=== PATIENT | female | born 1960 | race Hispanic/Latino ===

== ENCOUNTER 2016-10-27 09:15 | Inpatient (IN) | payer OTHER ==
[2016-10-27 11:08] LABS: Basophils % (Auto) 0.8 % (0.0-1.8); Eosinophils % (Auto) 2.1 % (0.0-4.3); Hemoglobin 13.7 gm/dl (10.1-14.3); Mean Corpuscular HGB Conc 33 % (30-34); Mean Corpuscular Hemoglobin 31 pg (28-32); Mean Corpuscular Volume 92 fl (79-97); Platelet Count 262 K/mm3 (140-440); Red Blood Count 4.48 M/mm3 (3.65-5.03); Red Cell Distribution Width 13.4 % (13.2-15.2); White Blood Count 8.9 K/mm3 (4.5-11.0)
[2016-10-27 11:30] LABS: Anion Gap 17 mmol/L; BUN/Creatinine Ratio 23.75; Blood Urea Nitrogen 19 mg/dL (7-17); Calcium 9.1 mg/dL (8.4-10.2); Carbon Dioxide 24 mmol/L (22-30); Chloride 101.5 mmol/L (98-107); Glucose 149 mg/dL (65-100); Potassium 3.8 mmol/L (3.6-5.0); Sodium 139 mmol/L (137-145)
[2016-10-27 11:40] LABS: Albumin 3.8 g/dL (3.9-5); Albumin/Globulin Ratio 1.2 %; Bilirubin,Direct 0.3 mg/dL (0-0.2); Bilirubin,Indirect 0.4 mg/dL; Bilirubin,Total 0.7 mg/dL (0.1-1.2)
--- NOTE | 2016-10-27 11:46 | Emergency Department Report ---
ED Altered Mental Status HPI - General Chief Complaint: Altered Mental Status Stated Complaint: AMS Time Seen by Provider: 10/27/16 10:39 Source: patient, EMS Mode of arrival: Stretcher Limitations: No Limitations - History of Present Illness Initial Comments: The history that was available to me is that the patient "woke up in a hotel room and didn't know how she got there.". According to triage the patient remembered that she went to a club and stated that she didn't use drugs or alcohol. However she told me that she thought perhaps she might have drank too much alcohol. She is not very forthcoming concerning her drug use or what actually happened last night. However, she was found wandering into other people's rooms at this hotel. Patient denies any previous episode or psychiatric condition. She is not very willing to provide further historical information. She just states "I was disoriented". She tends to lie on her side with her head away turning away on repeated exams.. Complaint: altered mental status, confusion -: unknown Severity: moderate, severe Context: alcohol abuse, drug abuse (possibly) Associated Symptoms: denies other symptoms - Related Data Previous Rx's Medication Instructions Recorded Last Taken Type Benzonatate [Tessalon Perles] 100 mg PO Q8HR PRN #20 capsule 05/14/15 Unknown Rx guaiFENesin/CODEINE [Robitussin AC] 5 ml PO Q6H PRN #100 ml 05/14/15 Unknown Rx predniSONE [Deltasone] 20 mg PO BID 5 Days 05/14/15 Unknown Rx ALBUTEROL Inhaler [ProAir HFA 2 puff IH QID PRN #1 inhalation 10/31/15 Unknown Rx Inhaler] Levofloxacin [Levaquin TAB] 500 mg PO QDAY #5 tablet 10/31/15 Unknown Rx predniSONE [Deltasone] 50 mg PO QDAY #5 tab 10/31/15 Unknown Rx Allergies Allergy/AdvReac Type Severity Reaction Status Date / Time No Known Allergies Allergy Unverified 05/14/15 10:24 ED Review of Systems ROS: Stated complaint: AMS Other details as noted in HPI Comment: Unobtainable due to pts medical conditions (Limited secondary to patient cooperation and altered mental status) ED Past Medical Hx - Past Medical History Previous Medical History?: Yes Hx Hypertension: Yes Hx Heart Attack/AMI: Yes Hx Diabetes: Yes Hx Psychiatric Treatment: Yes (depression) Hx COPD: Yes Additional medical history: Hypothyroid. Hepatits C. Neuropathy - Surgical History Past Surgical History?: Yes Hx Coronary Stent: Yes Additional Surgical History: Cardiac cath - Social History Smoking Status: Current Every Day Smoker Substance Use Type: Alcohol, Methamphetamines - Medications Home Medications: Home Medications Medication Instructions Recorded Confirmed Last Taken Type Benzonatate [Tessalon Perles] 100 mg PO Q8HR PRN #20 capsule 05/14/15 Unknown Rx guaiFENesin/CODEINE [Robitussin AC] 5 ml PO Q6H PRN #100 ml 05/14/15 Unknown Rx predniSONE [Deltasone] 20 mg PO BID 5 Days 05/14/15 Unknown Rx ALBUTEROL Inhaler [ProAir HFA 2 puff IH QID PRN #1 inhalation 10/31/15 Unknown Rx Inhaler] Levofloxacin [Levaquin TAB] 500 mg PO QDAY #5 tablet 10/31/15 Unknown Rx predniSONE [Deltasone] 50 mg PO QDAY #5 tab 10/31/15 Unknown Rx ED Physical Exam - General Limitations: Altered Mental Status General appearance: in no apparent distress, lethargic - Head Head exam: Present: atraumatic, normocephalic - Eye Eye exam: Present: normal appearance, PERRL, EOMI. Absent: scleral icterus - ENT ENT exam: Present: normal exam, mucous membranes moist - Neck Neck exam: Present: normal inspection. Absent: tenderness, meningismus - Respiratory Respiratory exam: Present: normal lung sounds bilaterally. Absent: respiratory distress - Cardiovascular Cardiovascular Exam: Present: regular rate, normal rhythm. Absent: systolic murmur, diastolic murmur, rubs, gallop - GI/Abdominal GI/Abdominal exam: Present: soft, normal bowel sounds. Absent: distended, tenderness, guarding, rebound, rigid - Extremities Exam Extremities exam: Present: normal inspection - Back Exam Back exam: Present: normal inspection - Neurological Exam Neurological exam: Present: alert, altered, CN II-XII intact (as testable poor patient cooperation). Absent: motor sensory deficit - Psychiatric Psychiatric exam: Present: normal mood, flat affect - Skin Skin exam: Present: warm, dry, intact, normal color. Absent: rash - Assessment Assessment Interval: Baseline - Level of Consciousness 1a. Level of Consciousness: alert - LOC Questions 1b. LOC Questions: answers correctly - LOC Command 1c. LOC Commands: performs tasks correctly - Best Gaze 2. Best Gaze: normal - Visual 3. Visual: no visual loss - Facial Palsy 4. Facial Palsy: normal symmetrical movement - Motor Arm 5b. Motor Arm Right: no drift 5a. Motor Arm Left: no drift - Motor Leg 6a. Motor Leg Left: no drift 6b. Motor Leg Right: no drift - Limb Ataxia 7. Limb Ataxia: absent - Sensory 8. Sensory: normal - Best Language 9. Best Language: no aphasia - Dysarthria 10. Dysarthria: normal - Extinction and Inattention 11. Extinction/Inattention: no abnormality - Scoring Total Score: 0 Stroke Severity: No Stroke Symptoms ED Course Vital Signs 10/27/16 10/27/16 10/27/16 10:15 10:17 10:21 Temperature Pulse Rate 74 85 86 Respiratory 17 18 20 Rate Blood Pressure 154/73 154/73 O2 Sat by Pulse 95 94 96 Oximetry 10/27/16 10/27/16 10/27/16 10:23 10:24 10:30 Temperature 97.9 F Pulse Rate 84 Respiratory 16 13 Rate Blood Pressure 148/79 O2 Sat by Pulse 90 97 Oximetry 10/27/16 10/27/16 10/27/16 10:45 11:01 11:15 Temperature Pulse Rate 89 68 83 Respiratory 15 15 17 Rate Blood Pressure 141/84 154/68 137/70 O2 Sat by Pulse 93 95 91 Oximetry 10/27/16 10/27/16 10/27/16 11:31 11:45 12:00 Temperature Pulse Rate 89 82 81 Respiratory 22 17 15 Rate Blood Pressure 134/52 122/54 112/54 O2 Sat by Pulse 90 90 89 Oximetry 10/27/16 10/27/16 10/27/16 12:15 12:31 12:45 Temperature Pulse Rate 85 74 88 Respiratory 17 18 18 Rate Blood Pressure 126/60 120/65 132/78 O2 Sat by Pulse 98 97 Oximetry 10/27/16 10/27/16 10/27/16 13:00 13:15 13:30 Temperature Pulse Rate 87 79 92 H Respiratory 17 20 17 Rate Blood Pressure 138/72 149/71 151/72 O2 Sat by Pulse 98 97 96 Oximetry 10/27/16 10/27/16 10/27/16 13:45 14:00 14:15 Temperature Pulse Rate 87 76 81 Respiratory 20 16 16 Rate Blood Pressure 146/77 156/77 136/76 O2 Sat by Pulse 96 96 94 Oximetry 10/27/16 10/27/16 10/27/16 14:31 14:45 15:01 Temperature Pulse Rate 82 80 81 Respiratory 16 16 17 Rate Blood Pressure 138/72 138/72 141/81 O2 Sat by Pulse 93 95 95 Oximetry 10/27/16 10/27/16 10/27/16 15:15 15:31 15:45 Temperature Pulse Rate 70 68 84 Respiratory 15 15 13 Rate Blood Pressure 140/59 115/54 115/54 O2 Sat by Pulse 97 98 96 Oximetry 10/27/16 10/27/16 10/27/16 16:01 16:15 16:30 Temperature Pulse Rate 80 95 H Respiratory 16 18 16 Rate Blood Pressure 131/73 131/73 128/74 O2 Sat by Pulse 92 96 92 Oximetry 10/27/16 16:45 Temperature Pulse Rate 86 Respiratory 16 Rate Blood Pressure 128/74 O2 Sat by Pulse 93 Oximetry - Reevaluation(s) Reevaluation #1: An arterial blood gas showed respiratory acidosis with hypercapnia although just mild to moderate. Dr. Meyers is aware. Believe the patient will need nocturnal C Pap. 10/27/16 17:21 - Lab Data Result diagrams: 10/27/16 10:52 10/27/16 10:52 Lab Results 10/27/16 10/27/16 10/27/16 Range/Units 10:52 10:52 10:52 WBC 8.9 (4.5-11.0) K/mm3 RBC 4.48 (3.65-5.03) M/mm3 Hgb 13.7 (10.1-14.3) gm/dl Hct 41.0 (30.3-42.9) % MCV 92 (79-97) fl MCH 31 (28-32) pg MCHC 33 (30-34) % RDW 13.4 (13.2-15.2) % Plt Count 262 (140-440) K/mm3 Lymph % (Auto) 33.1 (13.4-35.0) % Newberry % (Auto) 9.1 H (0.0-7.3) % Eos % (Auto) 2.1 (0.0-4.3) % Baso % (Auto) 0.8 (0.0-1.8) % Lymph # 3.0 (1.2-5.4) K/mm3 Newberry # 0.8 (0.0-0.8) K/mm3 Eos # 0.2 (0.0-0.4) K/mm3 Baso # 0.1 (0.0-0.1) K/mm3 Seg Neutrophils % 54.9 (40.0-70.0) % Seg Neutrophils # 4.9 (1.8-7.7) K/mm3 POC ABG pH (7.35-7.45) POC ABG pCO2 (35-45) POC ABG pO2 (80-105) POC ABG HCO3 POC ABG Total CO2 POC ABG O2 Sat POC ABG Base Excess FiO2 % Sodium 139 (137-145) mmol/L Potassium 3.8 (3.6-5.0) mmol/L Chloride 101.5 (98-107) mmol/L Carbon Dioxide 24 (22-30) mmol/L Anion Gap 17 mmol/L BUN 19 H (7-17) mg/dL Creatinine 0.8 (0.7-1.2) mg/dL Estimated GFR > 60 ml/min BUN/Creatinine Ratio 23.75 % Glucose 149 H (65-100) mg/dL Calcium 9.1 (8.4-10.2) mg/dL Total Bilirubin (0.1-1.2) mg/dL Direct Bilirubin (0-0.2) mg/dL Indirect Bilirubin mg/dL AST (5-40) units/L ALT (7-56) units/L Alkaline Phosphatase (35-129) units/L Ammonia (25-60) umol/L Total Creatine Kinase (30-135) units/L CK-MB (CK-2) (0.0-4.0) ng/mL CK-MB (CK-2) Rel Index (0-4) Total Protein (6.3-8.2) g/dL Albumin (3.9-5) g/dL Albumin/Globulin Ratio % Urine Color (Yellow) Urine Turbidity (Clear) Urine pH (5.0-7.0) Ur Specific [place] (1.003-1.030) Urine Protein (Negative) mg/dL Urine Glucose (UA) (Negative) mg/dL Urine Ketones (Negative) mg/dL Urine Blood (Negative) Urine Nitrite (Negative) Urine Bilirubin (Negative) Urine Urobilinogen (<2.0) mg/dL Ur Leukocyte Esterase (Negative) Urine WBC (Auto) (0.0-6.0) /HPF Urine RBC (Auto) (0.0-6.0) /HPF U Epithel Cells (Auto) (0-13.0) /HPF Urine Bacteria (Auto) (Negative) /HPF Urine Mucus /HPF Plasma/Serum Alcohol < 0.01 (0-0.07) gm% 10/27/16 10/27/16 10/27/16 Range/Units 10:52 10:52 10:58 WBC (4.5-11.0) K/mm3 RBC (3.65-5.03) M/mm3 Hgb (10.1-14.3) gm/dl Hct (30.3-42.9) % MCV (79-97) fl MCH (28-32) pg MCHC (30-34) % RDW (13.2-15.2) % Plt Count (140-440) K/mm3 Lymph % (Auto) (13.4-35.0) % Newberry % (Auto) (0.0-7.3) % Eos % (Auto) (0.0-4.3) % Baso % (Auto) (0.0-1.8) % Lymph # (1.2-5.4) K/mm3 Newberry # (0.0-0.8) K/mm3 Eos # (0.0-0.4) K/mm3 Baso # (0.0-0.1) K/mm3 Seg Neutrophils % (40.0-70.0) % Seg Neutrophils # (1.8-7.7) K/mm3 POC ABG pH (7.35-7.45) POC ABG pCO2 (35-45) POC ABG pO2 (80-105) POC ABG HCO3 POC ABG Total CO2 POC ABG O2 Sat POC ABG Base Excess FiO2 % Sodium (137-145) mmol/L Potassium (3.6-5.0) mmol/L Chloride (98-107) mmol/L Carbon Dioxide (22-30) mmol/L Anion Gap mmol/L BUN (7-17) mg/dL Creatinine (0.7-1.2) mg/dL Estimated GFR ml/min BUN/Creatinine Ratio % Glucose (65-100) mg/dL Calcium (8.4-10.2) mg/dL Total Bilirubin 0.70 (0.1-1.2) mg/dL Direct Bilirubin 0.3 H (0-0.2) mg/dL Indirect Bilirubin 0.4 mg/dL AST 20 (5-40) units/L ALT 24 (7-56) units/L Alkaline Phosphatase 63 (35-129) units/L Ammonia 52.0 (25-60) umol/L Total Creatine Kinase 98 (30-135) units/L CK-MB (CK-2) 3.4 (0.0-4.0) ng/mL CK-MB (CK-2) Rel Index 3.4 (0-4) Total Protein 7.0 (6.3-8.2) g/dL Albumin 3.8 L (3.9-5) g/dL Albumin/Globulin Ratio 1.2 % Urine Color (Yellow) Urine Turbidity (Clear) Urine pH (5.0-7.0) Ur Specific [place] (1.003-1.030) Urine Protein (Negative) mg/dL Urine Glucose (UA) (Negative) mg/dL Urine Ketones (Negative) mg/dL Urine Blood (Negative) Urine Nitrite (Negative) Urine Bilirubin (Negative) Urine Urobilinogen (<2.0) mg/dL Ur Leukocyte Esterase (Negative) Urine WBC (Auto) (0.0-6.0) /HPF Urine RBC (Auto) (0.0-6.0) /HPF U Epithel Cells (Auto) (0-13.0) /HPF Urine Bacteria (Auto) (Negative) /HPF Urine Mucus /HPF Plasma/Serum Alcohol (0-0.07) gm% 10/27/16 10/27/16 Range/Units 16:02 16:45 WBC (4.5-11.0) K/mm3 RBC (3.65-5.03) M/mm3 Hgb (10.1-14.3) gm/dl Hct (30.3-42.9) % MCV (79-97) fl MCH (28-32) pg MCHC (30-34) % RDW (13.2-15.2) % Plt Count (140-440) K/mm3 Lymph % (Auto) (13.4-35.0) % Newberry % (Auto) (0.0-7.3) % Eos % (Auto) (0.0-4.3) % Baso % (Auto) (0.0-1.8) % Lymph # (1.2-5.4) K/mm3 Newberry # (0.0-0.8) K/mm3 Eos # (0.0-0.4) K/mm3 Baso # (0.0-0.1) K/mm3 Seg Neutrophils % (40.0-70.0) % Seg Neutrophils # (1.8-7.7) K/mm3 POC ABG pH 7.339 L (7.35-7.45) POC ABG pCO2 48.8 H (35-45) POC ABG pO2 63 L (80-105) POC ABG HCO3 26.3 POC ABG Total CO2 28 POC ABG O2 Sat 90 POC ABG Base Excess 1 FiO2 21 % Sodium (137-145) mmol/L Potassium (3.6-5.0) mmol/L Chloride (98-107) mmol/L Carbon Dioxide (22-30) mmol/L Anion Gap mmol/L BUN (7-17) mg/dL Creatinine (0.7-1.2) mg/dL Estimated GFR ml/min BUN/Creatinine Ratio % Glucose (65-100) mg/dL Calcium (8.4-10.2) mg/dL Total Bilirubin (0.1-1.2) mg/dL Direct Bilirubin (0-0.2) mg/dL Indirect Bilirubin mg/dL AST (5-40) units/L ALT (7-56) units/L Alkaline Phosphatase (35-129) units/L Ammonia (25-60) umol/L Total Creatine Kinase (30-135) units/L CK-MB (CK-2) (0.0-4.0) ng/mL CK-MB (CK-2) Rel Index (0-4) Total Protein (6.3-8.2) g/dL Albumin (3.9-5) g/dL Albumin/Globulin Ratio % Urine Color Yellow (Yellow) Urine Turbidity Clear (Clear) Urine pH 5.0 (5.0-7.0) Ur Specific [place] 1.026 (1.003-1.030) Urine Protein 30 mg/dl (Negative) mg/dL Urine Glucose (UA) 150 (Negative) mg/dL Urine Ketones Neg (Negative) mg/dL Urine Blood Neg (Negative) Urine Nitrite Neg (Negative) Urine Bilirubin Neg (Negative) Urine Urobilinogen 4.0 (<2.0) mg/dL Ur Leukocyte Esterase Lg (Negative) Urine WBC (Auto) 100.0 H (0.0-6.0) /HPF Urine RBC (Auto) 22.0 (0.0-6.0) /HPF U Epithel Cells (Auto) 2.0 (0-13.0) /HPF Urine Bacteria (Auto) 2+ (Negative) /HPF Urine Mucus Few /HPF Plasma/Serum Alcohol (0-0.07) gm% Laboratory Results - last 24 hr 10/27/16 10/27/16 10/27/16 10:52 10:52 10:52 WBC 8.9 RBC 4.48 Hgb 13.7 Hct 41.0 MCV 92 MCH 31 MCHC 33 RDW 13.4 Plt Count 262 Lymph % (Auto) 33.1 Newberry % (Auto) 9.1 H Eos % (Auto) 2.1 Baso % (Auto) 0.8 Lymph # 3.0 Newberry # 0.8 Eos # 0.2 Baso # 0.1 Seg Neutrophils % 54.9 Seg Neutrophils # 4.9 Sodium 139 Potassium 3.8 Chloride 101.5 Carbon Dioxide 24 Anion Gap 17 BUN 19 H Creatinine 0.8 Estimated GFR > 60 BUN/Creatinine Ratio 23.75 Glucose 149 H Calcium 9.1 Total Bilirubin Direct Bilirubin Indirect Bilirubin AST ALT Alkaline Phosphatase Ammonia 52.0 Total Protein Albumin Albumin/Globulin Ratio 10/27/16 10:52 WBC RBC Hgb Hct MCV MCH MCHC RDW Plt Count Lymph % (Auto) Newberry % (Auto) Eos % (Auto) Baso % (Auto) Lymph # Newberry # Eos # Baso # Seg Neutrophils % Seg Neutrophils # Sodium Potassium Chloride Carbon Dioxide Anion Gap BUN Creatinine Estimated GFR BUN/Creatinine Ratio Glucose Calcium Total Bilirubin 0.70 Direct Bilirubin 0.3 H Indirect Bilirubin 0.4 AST 20 ALT 24 Alkaline Phosphatase 63 Ammonia Total Protein 7.0 Albumin 3.8 L Albumin/Globulin Ratio 1.2 Laboratory Results - last 24 hr 10/27/16 10/27/16 10/27/16 10:52 10:52 10:52 WBC 8.9 RBC 4.48 Hgb 13.7 Hct 41.0 MCV 92 MCH 31 MCHC 33 RDW 13.4 Plt Count 262 Lymph % (Auto) 33.1 New[place] % (Auto) 9.1 H Eos % (Auto) 2.1 Baso % (Auto) 0.8 Lymph # 3.0 Newberry # 0.8 Eos # 0.2 Baso # 0.1 Seg Neutrophils % 54.9 Seg Neutrophils # 4.9 Sodium 139 Potassium 3.8 Chloride 101.5 Carbon Dioxide 24 Anion Gap 17 BUN 19 H Creatinine 0.8 Estimated GFR > 60 BUN/Creatinine Ratio 23.75 Glucose 149 H Calcium 9.1 Total Bilirubin Direct Bilirubin Indirect Bilirubin AST ALT Alkaline Phosphatase Ammonia Total Creatine Kinase CK-MB (CK-2) CK-MB (CK-2) Rel Index Total Protein Albumin Albumin/Globulin Ratio Plasma/Serum Alcohol < 0.01 10/27/16 10/27/16 10/27/16 10:52 10:52 10:58 WBC RBC Hgb Hct MCV MCH MCHC RDW Plt Count Lymph % (Auto) [place] % (Auto) Eos % (Auto) Baso % (Auto) Lymph # [place] # Eos # Baso # Seg Neutrophils % Seg Neutrophils # Sodium Potassium Chloride Carbon Dioxide Anion Gap BUN Creatinine Estimated GFR BUN/Creatinine Ratio Glucose Calcium Total Bilirubin 0.70 Direct Bilirubin 0.3 H Indirect Bilirubin 0.4 AST 20 ALT 24 Alkaline Phosphatase 63 Ammonia 52.0 Total Creatine Kinase 98 CK-MB (CK-2) 3.4 CK-MB (CK-2) Rel Index 3.4 Total Protein 7.0 Albumin 3.8 L Albumin/Globulin Ratio 1.2 Plasma/Serum Alcohol - EKG Data -: EKG Interpreted by Me EKG shows normal: sinus rhythm, axis (left axis deviation), QRS complexes ( intraventricular conduction delay/incomplete left bundle) Interpretation: no acute changes - Radiology Data Radiology results: report reviewed interpreted by me: Borderline cardiomegaly no acute process CT head no acute process Critical care attestation.: If time is entered above; I have spent that time in minutes in the direct care of this critically ill patient, excluding procedure time. ED Disposition Clinical Impression: Hypercapnic respiratory failure, chronic Altered mental status Qualifiers: Altered mental status type: disorientation Qualified Code(s): R41.0 - Disorientation, unspecified Disposition: OP ADMITTED IP TO THIS HOSP Is pt being admited?: Yes Does the pt Need Aspirin: Yes Condition: Stable Referrals: PRIMARY CARE, [Primary Care Provider] - 3-5 Days Time of Disposition: 17:22
--- NOTE | 2016-10-27 11:56 | XRay Report ---
AP CHEST :10/27/16 09:15:00 CLINICAL: Altered mental status. COMPARISON:10/30/15 FINDINGS: The heart is borderline enlarged. Normal pulmonary vessels. The lungs are normally expanded and clear. The bones and soft tissues are normal. IMPRESSION: Borderline cardiomegaly but otherwise normal.
[2016-10-27 12:00] LABS: Creatine Kinase MB 3.4 ng/mL (0.0-4.0)
--- NOTE | 2016-10-27 13:52 | Cat Scan Report ---
CT HEAD WITHOUT CONTRAST: 10/27/16 09:15:00 CLINICAL: Altered mental status. TECHNIQUE: 5-mm and 2.5-mm noncontrast scans. COMPARISON:09/22/12 FINDINGS: The ventricles and sulci are normal for age. No abnormal density. No mass or mass effect. No hemorrhage, edema or extra-axial collection. The sinuses are clear. Normal orbits and soft tissues. The calvarium and skull base are intact. IMPRESSION: Normal study. No acute change.
[2016-10-27 16:10] LABS: ISTAT Base Excess 1; ISTAT DEVICE 0; ISTAT HCO3 26.3; ISTAT PCO2 48.8 (35-45); ISTAT PH 7.339 (7.35-7.45); ISTAT PO2 63 (80-105); ISTAT SO2 90; ISTAT TCO2 28
--- NOTE | 2016-10-27 16:13 | History and Physical Report ---
History of Present Illness Chief complaint: I think i drank too much History of present illness: 56 YO Female with HTN, VT, HCV, DM, Depression, Hypothyroid, Nicotine Dependence , Polysubstance abuse presents to ED for evaluation. Pt is lethargic, and unable to provide history. History taken from ED staff, and EMS. Pt states that she went to a nightclub. Pt unable to recall name of nightclub, and if whe was accompanied by anyone. Pt states that she "woke up in a hotel room and didn't know how she got there.". Pt states that she may have drank too much alcohol. Pt was found wandering around hotel and attempting to access the rooms of other hotel guests. Pt enies fever, chills,CP, Palpitation, NVD, recent ill contacts, IVDA, ingestion of food or water from new or different sources. Past History Past Medical History: acute VT, diabetes, hepatitis, hypertension, hypothyroidism Past Surgical History: Other (stent) Social history: , smoking, prescription drug abuse Family history: no significant family history (reviewed) Medications and Allergies Allergies Allergy/AdvReac Type Severity Reaction Status Date / Time No Known Allergies Allergy Unverified 05/14/15 10:24 Home Medications Medication Instructions Recorded Confirmed Last Taken Type Benzonatate [Tessalon Perles] 100 mg PO Q8HR PRN #20 capsule 05/14/15 Unknown Rx guaiFENesin/CODEINE [Robitussin AC] 5 ml PO Q6H PRN #100 ml 05/14/15 Unknown Rx predniSONE [Deltasone] 20 mg PO BID 5 Days 05/14/15 Unknown Rx ALBUTEROL Inhaler [ProAir HFA 2 puff IH QID PRN #1 inhalation 10/31/15 Unknown Rx Inhaler] Levofloxacin [Levaquin TAB] 500 mg PO QDAY #5 tablet 10/31/15 Unknown Rx predniSONE [Deltasone] 50 mg PO QDAY #5 tab 10/31/15 Unknown Rx Review of Systems ROS unobtainable: due to mental status Exam - Constitutional Vitals: Temp Pulse Resp BP Pulse Ox 97.9 F 87 20 146/77 96 10/27/16 10:23 10/27/16 13:45 10/27/16 13:45 10/27/16 13:45 10/27/16 13:45 General appearance: Present: mild distress, obese - EENT Eyes: Present: PERRL ENT: hearing intact, clear oral mucosa - Neck Neck: Present: supple, normal ROM - Respiratory Respiratory effort: normal Respiratory: bilateral: CTA - Cardiovascular Heart Sounds: Present: S1 & S2. Absent: rub, click - Extremities Extremities: pulses symmetrical, No edema Peripheral Pulses: within normal limits - Abdominal General gastrointestinal: Present: soft, non-tender, non-distended, normal bowel sounds Female genitourinary: Present: normal - Integumentary Integumentary: Present: clear, warm, dry - Musculoskeletal Musculoskeletal: gait normal, strength equal bilaterally - Psychiatric Psychiatric: appropriate mood/affect, intact judgment & insight - Neurologic Neurologic: CNII-XII intact, moves all extremities Results - Labs CBC & Chem 7: 10/27/16 10:52 10/27/16 10:52 Labs: Abnormal lab results 10/27/16 10/27/16 10/27/16 Range/Units 10:52 10:52 10:52 Smyth % (Auto) 9.1 H (0.0-7.3) % POC ABG pH (7.35-7.45) POC ABG pCO2 (35-45) POC ABG pO2 (80-105) BUN 19 H (7-17) mg/dL Glucose 149 H (65-100) mg/dL Direct Bilirubin 0.3 H (0-0.2) mg/dL Albumin 3.8 L (3.9-5) g/dL 10/27/16 Range/Units 16:02 [place]th % (Auto) (0.0-7.3) % POC ABG pH 7.339 L (7.35-7.45) POC ABG pCO2 48.8 H (35-45) POC ABG pO2 63 L (80-105) BUN (7-17) mg/dL Glucose (65-100) mg/dL Direct Bilirubin (0-0.2) mg/dL Albumin (3.9-5) g/dL Assessment and Plan - Patient Problems (1) Encephalopathy Current Visit: Yes Status: Acute Plan to address problem: IVF, supportive care, CT head, neuro check, reassess in AM. (2) Obstructive chronic bronchitis Current Visit: Yes Status: Acute Plan to address problem: supplemental oxygen, nebs, aspiration precautions, supportive care. (3) JACKI on CPAP Current Visit: Yes Status: Acute Plan to address problem: CPAP qhs as clinically indicated, (4) Obesity Current Visit: Yes Status: Acute Qualifiers: Obesity type: O Obesity severity: O Plan to address problem: Balanced diet, increased physical activity, (5) HTN (hypertension) Current Visit: Yes Status: Acute Qualifiers: Hypertension type: H Plan to address problem: monitor bp q shift, continue current care, (6) Diabetes Current Visit: Yes Status: Acute Qualifiers: Diabetes mellitus type: D Diabetes mellitus complication status: D Diabetes mellitus complication detail: D Diabetic retinopathy severity: D Proliferative retinopathy type: P Diabetes mellitus macular edema: D Diabetes mellitus rat exterminator insulin use: D Laterality: L Chronic kidney disease stage: C Plan to address problem: ADA diet, insulin, accu check, (7) DVT prophylaxis Current Visit: Yes Status: Acute
[2016-10-27 16:47] LABS: Urine Drugs of Abuse Note Disclamer
[2016-10-27] MEDS ORDERED: DULCOLAX PR PRN (16:49)
[2016-10-27] MEDS ORDERED: ZOFRAN IV PRN (16:49)
[2016-10-27] MEDS ORDERED: MILK OF MAGNESIA PO PRN (16:49)
[2016-10-27] MEDS ORDERED: TYLENOL PO PRN (16:49)
[2016-10-27] MEDS ORDERED: D50W (25GM) IV PRN (16:52)
[2016-10-27] MEDS ORDERED: PROAIR IH PRN (16:53)
[2016-10-27] MEDS ORDERED: TESSALON PERLES PO PRN (16:53)
[2016-10-27 17:02] LABS: Bacteria,Urine 2+ /HPF (Negative); Bilirubin,Urine NEG (Negative); Blood,Urine NEG (Negative); Ketones,Urine NEG (Negative); Leukocyte Esterase,Urine LG (Negative); Mucus,Urine FEW /HPF; Nitrite,Urine NEG (Negative)
[2016-10-27] MEDS ORDERED: PROVENTIL IH PRN (17:20)
[2016-10-27] MEDS ORDERED: BABY ASPIRIN PO ONE (17:22)
[2016-10-27] MEDS ORDERED: ROCEPHIN/NS 1 GM/50 ML 1 GM/50 ML BAG IV ONE ×2 (17:25→18:09)
[2016-10-27] MEDS ORDERED: BABY ASPIRIN ONE (18:10)
[2016-10-27] MEDS: DUONEB 0.5 MG-3 MG/3 ML SOLN IH SCH (20:18)
[2016-10-27] MEDS: MACROBID PO SCH (21:09)
[2016-10-28] MEDS: DUONEB 0.5 MG-3 MG/3 ML SOLN IH SCH ×4 (02:31→19:26)
--- NOTE | 2016-10-28 07:34 | Admit Criteria Form ---
Admission Criteria Documentation: RESPIRATORY FAILURE GRG Clinical Indications for Admission to Inpatient Care (Place 'X' for any and all applicable criteria): Hospital admission is needed for appropriate care of the patient because of acute respiratory failure or insufficiency as indicated by ANY ONE of the following(1)(2)(3)(4)(5)(6)(7)(8): [ ]I. Mechanical ventilation needed (acute invasive or noninvasive) [X]II. Severe ventilation deficit as indicated by ANY ONE of the following (9) [ ]a) Respiratory acidosis (pH less than 7.32 and partial pressure of carbon dioxide greater than 40 mm Hg (5.3 kPa)) [X]b) Partial pressure of carbon dioxide greater than 44 mm Hg (5.9 kPa ) (new) [ ]c) Airflow measurements less than 25% of predicted (eg, peak expiratory flow rate less than 100 L/minute) [ ]d) Forced vital capacity less than 15 mL/kg of ideal body weight, or 50% decrease in vital capacity from baseline [ ]III. Noncardiac pulmonary edema not resolving with rapid emergency treatment (8) [ ]IV. Severe respiratory distress as indicated by ANY ONE of the following: [ ]a) Severe tachypnea (respiratory rate greater than 30, greater than 45 for 6-month-old, greater than 60 for ) [ ]b) Severe hypoxemia (partial pressure of oxygen less than 50 mm Hg ( 6.7 kPa) on greater than 50% oxygen or partial pressure of oxygen to FIO2 ratio less than 200) [ ]c) Mental status deterioration from respiratory disease [ ]V. Airway obstruction or inadequate protection [A](10)(11) The original [employer] content created by [employer] has been revised. The portions of the content which have been revised are identified through the use of italic text or in bold, and [facility] [employer] has neither reviewed nor approved the modified material. All other unmodified content is copyright [employer]. Please see references footnoted in the original [employer] edition 2016 Admission Criteria Met: Yes
--- NOTE | 2016-10-28 08:53 | Progress Note ---
Assessment and Plan Assessment and plan: Toxic metabolic encephalopathy Amphetamine abuse Marijuana abuse COPD Acute on chronic resp failure with hypercarbia. Consult Pulm History Interval history: Patient was confused, disoriented, walking along the hallway of [facility], attempting to go into rooms of other people at [facility] Hospitalist Physical - Physical exam Narrative exam: General: Not in acute distress, overweight HEENT: Normocephalic, atraumatic Neck: supple, no JVD Lungs: Clear to auscultation bilaterally, no crackles or wheeze. Heart:S1-S2 regular, no murmurs, rubs or gallop, Abdomen: soft, non tender, non-distended, normal bowel sounds present Ext: No edema, no clubbing, no cyanosis Neuro: Awake.alert, oriented x 3. Normal speech ,Muscle power 5/5. No focal neurology signs. - Constitutional Vitals: Temp Pulse Resp BP Pulse Ox 98.2 F 68 20 133/75 98 10/28/16 07:35 10/28/16 07:35 10/28/16 07:35 10/28/16 07:35 10/28/16 07:35 Results - Labs CBC & Chem 7: 10/27/16 10:52 10/27/16 10:52 Labs: Laboratory Last Values WBC 8.9 K/mm3 (4.5-11.0) 10/27/16 10:52 RBC 4.48 M/mm3 (3.65-5.03) 10/27/16 10:52 Hgb 13.7 gm/dl (10.1-14.3) 10/27/16 10:52 Hct 41.0 % (30.3-42.9) 10/27/16 10:52 MCV 92 fl (79-97) 10/27/16 10:52 MCH 31 pg (28-32) 10/27/16 10:52 MCHC 33 % (30-34) 10/27/16 10:52 RDW 13.4 % (13.2-15.2) 10/27/16 10:52 Plt Count 262 K/mm3 (140-440) 10/27/16 10:52 Lymph % (Auto) 33.1 % (13.4-35.0) 10/27/16 10:52 Jefferson % (Auto) 9.1 % (0.0-7.3) H 10/27/16 10:52 Eos % (Auto) 2.1 % (0.0-4.3) 10/27/16 10:52 Baso % (Auto) 0.8 % (0.0-1.8) 10/27/16 10:52 Lymph # 3.0 K/mm3 (1.2-5.4) 10/27/16 10:52 Jefferson # 0.8 K/mm3 (0.0-0.8) 10/27/16 10:52 Eos # 0.2 K/mm3 (0.0-0.4) 10/27/16 10:52 Baso # 0.1 K/mm3 (0.0-0.1) 10/27/16 10:52 Seg Neutrophils % 54.9 % (40.0-70.0) 10/27/16 10:52 Seg Neutrophils # 4.9 K/mm3 (1.8-7.7) 10/27/16 10:52 POC ABG pH 7.339 (7.35-7.45) L 10/27/16 16:02 POC ABG pCO2 48.8 (35-45) H 10/27/16 16:02 POC ABG pO2 63 (80-105) L 10/27/16 16:02 POC ABG HCO3 26.3 10/27/16 16:02 POC ABG Total CO2 28 10/27/16 16:02 POC ABG O2 Sat 90 10/27/16 16:02 POC ABG Base Excess 1 10/27/16 16:02 FiO2 21 % 10/27/16 16:02 Sodium 139 mmol/L (137-145) 10/27/16 10:52 Potassium 3.8 mmol/L (3.6-5.0) 10/27/16 10:52 Chloride 101.5 mmol/L (98-107) 10/27/16 10:52 Carbon Dioxide 24 mmol/L (22-30) 10/27/16 10:52 Anion Gap 17 mmol/L 10/27/16 10:52 BUN 19 mg/dL (7-17) H 10/27/16 10:52 Creatinine 0.8 mg/dL (0.7-1.2) 10/27/16 10:52 Estimated GFR > 60 ml/min 10/27/16 10:52 BUN/Creatinine Ratio 23.75 % 10/27/16 10:52 Glucose 149 mg/dL (65-100) H 10/27/16 10:52 Calcium 9.1 mg/dL (8.4-10.2) 10/27/16 10:52 Total Bilirubin 0.70 mg/dL (0.1-1.2) 10/27/16 10:52 Direct Bilirubin 0.3 mg/dL (0-0.2) H 10/27/16 10:52 Indirect Bilirubin 0.4 mg/dL 10/27/16 10:52 AST 20 units/L (5-40) 10/27/16 10:52 ALT 24 units/L (7-56) 10/27/16 10:52 Alkaline Phosphatase 63 units/L (35-129) 10/27/16 10:52 Ammonia 52.0 umol/L (25-60) 10/27/16 10:52 Total Creatine Kinase 98 units/L (30-135) 10/27/16 10:58 CK-MB (CK-2) 3.4 ng/mL (0.0-4.0) 10/27/16 10:58 CK-MB (CK-2) Rel Index 3.4 (0-4) 10/27/16 10:58 Total Protein 7.0 g/dL (6.3-8.2) 10/27/16 10:52 Albumin 3.8 g/dL (3.9-5) L 10/27/16 10:52 Albumin/Globulin Ratio 1.2 % 10/27/16 10:52 Urine Color Yellow (Yellow) 10/27/16 16:45 Urine Turbidity Clear (Clear) 10/27/16 16:45 Urine pH 5.0 (5.0-7.0) 10/27/16 16:45 Ur Specific Helper 1.026 (1.003-1.030) 10/27/16 16:45 Urine Protein 30 mg/dl mg/dL (Negative) 10/27/16 16:45 Urine Glucose (UA) 150 mg/dL (Negative) 10/27/16 16:45 Urine Ketones Neg mg/dL (Negative) 10/27/16 16:45 Urine Blood Neg (Negative) 10/27/16 16:45 Urine Nitrite Neg (Negative) 10/27/16 16:45 Urine Bilirubin Neg (Negative) 10/27/16 16:45 Urine Urobilinogen 4.0 mg/dL (<2.0) 10/27/16 16:45 Ur Leukocyte Esterase Lg (Negative) 10/27/16 16:45 Urine WBC (Auto) 100.0 /HPF (0.0-6.0) H 10/27/16 16:45 Urine RBC (Auto) 22.0 /HPF (0.0-6.0) 10/27/16 16:45 U Epithel Cells (Auto) 2.0 /HPF (0-13.0) 10/27/16 16:45 Urine Bacteria (Auto) 2+ /HPF (Negative) 10/27/16 16:45 Urine Mucus Few /HPF 10/27/16 16:45 Urine Opiates Screen Presumptive negative 10/27/16 16:45 Urine Methadone Screen Presumptive negative 10/27/16 16:45 Ur Barbiturates Screen Presumptive negative 10/27/16 16:45 Ur Phencyclidine Scrn Presumptive negative 10/27/16 16:45 Ur Amphetamines Screen Presumptive positive 10/27/16 16:45 U Benzodiazepines Scrn Presumptive negative 10/27/16 16:45 Urine Cocaine Screen Presumptive negative 10/27/16 16:45 U Marijuana (THC) Screen Presumptive positive 10/27/16 16:45 Drugs of Abuse Note Disclamer 10/27/16 16:45 Plasma/Serum Alcohol < 0.01 gm% (0-0.07) 10/27/16 10:52
--- NOTE | 2016-10-28 08:53 | Discharge Summary ---
Providers - Providers Date of Admission: 10/27/16 16:49 Date of discharge: 10/28/16 Attending physician: TOMMY MARSHALL Primary care physician: YANCI GEE MD Hospitalization Condition: Stable Disposition: DISCHARGED TO HOME OR SELFCARE Exam - Constitutional Vitals: Temp Pulse Resp BP Pulse Ox 98.2 F 68 20 133/75 98 10/28/16 07:35 10/28/16 07:35 10/28/16 07:35 10/28/16 07:35 10/28/16 07:35 Plan Follow up with: PRIMARY MD MARLEN [Primary Care Provider] - 3-5 Days
[2016-10-28] MEDS ORDERED: DELTASONE PO SCH (10:00)
[2016-10-28] MEDS ORDERED: LEVAQUIN 500MG/100ML 500 MG/100 ML BAG IV SCH (11:00)
[2016-10-28] MEDS: MACROBID PO SCH (12:46)
[2016-10-28 15:34] VITALS: BP 121/62
[2016-10-28] MEDS ORDERED: NACL 0.9% 1000 ML 1,000 ML IV SCH (17:00)
[2016-10-28 17:28] LABS: ISTAT Base Excess 1; ISTAT DEVICE 0; ISTAT HCO3 26.4; ISTAT PCO2 44.5 (35-45); ISTAT PH 7.381 (7.35-7.45); ISTAT PO2 68 (80-105); ISTAT SO2 93; ISTAT TCO2 28
--- NOTE | 2016-10-28 18:43 | Discharge Summary ---
Providers - Providers Date of Admission: 10/27/16 16:49 Date of discharge: 10/28/16 Attending physician: TOMMY MARSHALL 10/28/16 12:45 Consult to Physician [CONS] Routine Consulting Provider: MAXI GRAVES Reason For Exam: hypercarbia Place consult to:: DR. GRAVES Notified:: DR. GRAVES Phone number called:: IN HOUSE Was contact made?: Yes If yes, spoke with:: IN HOUSE Time called:: 13:13 Primary care physician: DISH CARRIER Hospitalization Condition: Fair Disposition: DISCHARGED TO HOME OR SELFCARE - Discharge Diagnoses (1) Toxic metabolic encephalopathy Status: Acute (2) HTN (hypertension) Status: Chronic Qualifiers: Hypertension type: H Exam - Constitutional Vitals: Temp Pulse Resp BP Pulse Ox 97.6 F 55 L 16 121/62 91 10/28/16 15:15 10/28/16 15:28 10/28/16 15:28 10/28/16 15:15 10/28/16 09:08 Plan Activity: advance as tolerated Diet: low fat, low cholesterol, low salt, diabetic Additional Instructions: 1.Follow up with PCP or [facility] in 1 week. 2.Avoid methamphetamine. 3.Avoid Marijuana Follow up with: PRIMARY CARE, [Primary Care Provider] - 3-5 Days Prescriptions: Ciprofloxacin HCl [Ciprofloxacin TAB] 500 mg PO BID #10 tablet
== END 2016-10-28 20:15 | disposition home or self-care (01) | DRG 189 ==
LOC: ED 09:15 → 3A 16:49
PROVIDERS: ADMIT Internal Medicine; ATTEND Internal Medicine
PROC: 4A033R1 Measurement of Arterial Saturation, Peripheral, Percutaneous Approach (ICD-10-PCS; principal; 2016-10-27)
DX: J96.22 Acute and chronic respiratory failure with hypercapnia (principal); G92 Toxic encephalopathy; I10 Essential (primary) hypertension; E11.9 Type 2 diabetes mellitus without complications; F32.9 Major depressive disorder, single episode, unspecified; F17.210 Nicotine dependence, cigarettes, uncomplicated; J44.9 Chronic obstructive pulmonary disease, unspecified; E03.9 Hypothyroidism, unspecified; G47.33 Obstructive sleep apnea (adult) (pediatric); F15.10 Other stimulant abuse, uncomplicated; F12.10 Cannabis abuse, uncomplicated; E66.9 Obesity, unspecified; Z68.33 Body mass index [BMI] 33.0-33.9, adult; Z86.19 Personal history of other infectious and parasitic diseases; I25.2 Old myocardial infarction
CPT/HCPCS: 36415; 36600; 70450; 71010; 80048; 80074; 80307; 80320; 81001; 82140; 82550; 82553; 82803; 85025; 87086; 93005; 93010; 94640; 94660; 94760; 96374; G0480; J0696; J1956; J7030; J7512

== ENCOUNTER 2017-02-13 11:03 | Emergency (ER) | payer SELFPAY ==
[2017-02-13 11:36] LABS: Basophils % (Auto) 0.6 % (0.0-1.8); Hematocrit 41.7 % (30.3-42.9); Hemoglobin 14.1 gm/dl (10.1-14.3); Mean Corpuscular HGB Conc 34 % (30-34); Mean Corpuscular Hemoglobin 30 pg (28-32); Mean Corpuscular Volume 89 fl (79-97); Platelet Count 318 K/mm3 (140-440); Red Blood Count 4.68 M/mm3 (3.65-5.03); Red Cell Distribution Width 13.2 % (13.2-15.2); White Blood Count 9.1 K/mm3 (4.5-11.0)
[2017-02-13 11:53] LABS: Anion Gap 19 mmol/L; BUN/Creatinine Ratio 18.75; Blood Urea Nitrogen 15 mg/dL (7-17); Calcium 9.2 mg/dL (8.4-10.2); Carbon Dioxide 23 mmol/L (22-30); Chloride 94.6 mmol/L (98-107); Potassium 4.8 mmol/L (3.6-5.0); Sodium 132 mmol/L (137-145)
[2017-02-13 12:02] LABS: Glucose 546 mg/dL (65-100)
[2017-02-13] MEDS ORDERED: NACL 0.9% 1000 ML 1,000 ML IV ONE (13:24)
[2017-02-13 13:25] LABS: Bacteria,Urine 1+ /HPF (Negative); Bilirubin,Urine NEG (Negative); Blood,Urine SM (Negative); Ketones,Urine NEG (Negative); Leukocyte Esterase,Urine LG (Negative); Mucus,Urine FEW /HPF; Nitrite,Urine NEG (Negative); Protein,Urine <15 mg/dL mg/dL (Negative); Urobilinogen,Urine < 2.0 mg/dL (<2.0)
--- NOTE | 2017-02-13 14:09 | Emergency Department Report ---
HPI - General Chief Complaint: Hyperglycemia Time Seen by Provider: 02/13/17 12:51 - HPI HPI: 56-year-old female presents to the emergency department with complaint of uncontrolled diabetes. Patient is an insulin dependent diabetic who also takes metformin but has not taken her medication since January 28 she has been out of her medication. The patient was previously in half-way secondary to probation issues and she says that "they kept my blood sugar so low that I didn't need anything." However the patient has been having some increased thirst and urination and has been checking her blood sugar and is found it to be as high as greater than 600 today. She also has a past medical history of COPD, coronary artery disease with CA, hypertension, hepatitis C and hypothyroidism. She has not taken any of her other blood pressure or thyroid medications as well as she has been out. She goes to [facility] for her primary care needs. ED Past Medical Hx - Past Medical History Previous Medical History?: Yes Hx Hypertension: Yes Hx Heart Attack/AMI: Yes Hx Congestive Heart Failure: No Hx Diabetes: Yes Hx Psychiatric Treatment: Yes (depression) Hx Asthma: No Hx COPD: Yes Additional medical history: Hypothyroid. Hepatits C. Neuropathy - Surgical History Hx Coronary Stent: Yes Hx Appendectomy: Yes Additional Surgical History: Cardiac cath - Social History Smoking Status: Former Smoker Substance Use Type: None - Medications Home Medications: Home Medications Medication Instructions Recorded Confirmed Last Taken Type Ciprofloxacin HCl [Ciprofloxacin 500 mg PO BID #10 tablet 10/28/16 Unknown Rx TAB] Ibuprofen [Motrin 600 MG tab] 600 mg PO Q8H PRN #20 tablet 02/13/17 Unknown Rx Insulin NPH Hum/Reg Insulin Hm 100 unit SQ PRN PRN #1 vial 02/13/17 Unknown Rx [HumuLIN 70-30 Vial] Levothyroxine [Synthroid] 125 mcg PO QAM #30 tablet 02/13/17 Unknown Rx Lisinopril [Zestril TAB] 20 mg PO QDAY #30 tablet 02/13/17 Unknown Rx Nitrofurantoin [place]/M-Cryst 100 mg PO Q12HR #14 capsule 02/13/17 Unknown Rx [Macrobid CAP] ED Review of Systems ROS: Stated complaint: BS HIGH Other details as noted in HPI Comment: All other systems reviewed and negative Constitutional: denies: chills, fever Eyes: denies: eye pain, eye discharge, vision change ENT: denies: ear pain, throat pain Respiratory: denies: cough, shortness of breath, wheezing Cardiovascular: denies: chest pain, palpitations Endocrine: increased thirst, increased urine Gastrointestinal: denies: abdominal pain, nausea, diarrhea Genitourinary: frequency. denies: dysuria, discharge Musculoskeletal: denies: back pain, joint swelling, arthralgia Skin: denies: rash, lesions Neurological: denies: headache, weakness, paresthesias Physical Exam - Physical Exam Vital Signs: Vital Signs 02/13/17 02/13/17 11:13 12:51 Temperature 98.0 F Pulse Rate 96 H Respiratory 20 18 Rate Blood Pressure 155/96 O2 Sat by Pulse 100 99 Oximetry Physical Exam: GENERAL: The patient is well-developed well-nourished. HEENT: Normocephalic. Atraumatic. Extraocular motions are intact. Patient has moist mucous membranes. Pupils equal reactive to light bilaterally. NECK: Supple. Trachea is midline. CHEST/LUNGS: Clear to auscultation. There is no respiratory distress noted. HEART/CARDIOVASCULAR: Regular. There is no tachycardia. There is no gallop rub or murmur. ABDOMEN: Abdomen is soft, nontender. Patient has normal bowel sounds. There is no abdominal distention. SKIN: Skin is warm and dry. NEURO: The patient is awake, alert, and oriented. The patient is cooperative. The patient has no focal neurologic deficits. The patient has normal speech. MUSCULOSKELETAL: There is no tenderness or deformity. There is no limitation range of motion. There is no evidence of acute injury. ED Course Vital Signs 02/13/17 02/13/17 11:13 12:51 Temperature 98.0 F Pulse Rate 96 H Respiratory 20 18 Rate Blood Pressure 155/96 O2 Sat by Pulse 100 99 Oximetry ED Medical Decision Making - Lab Data Result diagrams: 02/13/17 11:24 02/13/17 11:24 - Medical Decision Making 56-year-old female presents to the emergency department with some hypertension and uncontrolled diabetes after being out of her medications for the past few weeks. She does have hyperglycemia with a blood sugar of almost 600 but she does not have any signs of diabetic ketoacidosis as there is no elevation in her anion gap and there is no venous acidosis. She was given IV fluid resuscitation and IV insulin and upon recheck her blood sugar is about 240. Patient does have a urinary tract infection which may be adding to her hypoglycemia. She was given a dose of Macrobid here. I forgot to give her a prescription upon discharge for Macrobid but we have written for her now and contacting her to pick it up today or tomorrow at the front desk worker or through the charge nurse. Her labs also show hypothyroidism with a TSH of about 10. Her blood pressure was slightly elevated at points but was not at a reasonable level. However given her diabetic status she will be restarted on her lisinopril. I wrote her for Synthroid. She was given a prescription for her Humulin 70/30. She will be started at the units in the morning and evening that she used to take deep blood sugar log to make sure that it is working and that she does not develop hypoglycemia. We discussed dietary changes for both her blood sugar and blood pressure. She was given multiple clinics in the area for primary care. She will return to the ER with any worsening of her symptoms or any acute distress. - Differential Diagnosis DKA, HHNK, hypothyroidism, hypertension Critical Care Time: No Critical care attestation.: If time is entered above; I have spent that time in minutes in the direct care of this critically ill patient, excluding procedure time. ED Disposition Clinical Impression: Noncompliance with medication regimen Hypertension Qualifiers: Hypertension type: essential hypertension Qualified Code(s): I10 - Essential ( primary) hypertension Hypothyroid Qualifiers: Hypothyroidism type: unspecified Qualified Code(s): E03.9 - Hypothyroidism, unspecified Uncontrolled diabetes mellitus Qualifiers: Diabetes mellitus type: type 1 Diabetes mellitus complication status: with hyperglycemia Qualified Code(s): E10.65 - Type 1 diabetes mellitus with hyperglycemia Disposition: DC-01 TO HOME OR SELFCARE Is pt being admited?: No Condition: Stable Instructions: Hypothyroidism (ED), Hypertension (ED), Diabetic Hyperglycemia ( ED) Additional Instructions: Follow-up with a primary care physician in the next few days or as soon as possible. Return to the emergency Department with any worsening of your symptoms or any acute distress. Keep a blood sugar log. Keep a blood pressure log. Please try and stay away from foods that are high in salt and caffeinated products to help with your blood pressure. Please try and stay away from foods are high and starts, carbohydrates and sugar to help with your blood sugar. Prescriptions: Ibuprofen [Motrin 600 MG tab] 600 mg PO Q8H PRN #20 tablet PRN Reason: Pain Insulin NPH Hum/Reg Insulin Hm [HumuLIN 70-30 Vial] 100 unit SQ PRN PRN #1 vial PRN Reason: Hyperglycemia Levothyroxine [Synthroid] 125 mcg PO QAM #30 tablet Lisinopril [Zestril TAB] 20 mg PO QDAY #30 tablet Referrals: PRIMARY CARE, [Primary Care Provider] - 3-5 Days [facility] [Outside] - 3-5 Days [facility] [Outside] - 3-5 Days [facility] [Outside] - 3-5 Days [facility] [Outside] - 3-[address] [facility] [Outside] - 3-5 Days Time of Disposition: 16:23
[2017-02-13] MEDS ORDERED: MACROBID PO ONE (15:36)
[2017-02-13 16:45] VITALS: BP 153/78
== END 2017-02-13 16:46 | disposition home or self-care (01) ==
LOC: ED 11:03
DX: E11.65 Type 2 diabetes mellitus with hyperglycemia (principal); I10 Essential (primary) hypertension; E03.9 Hypothyroidism, unspecified; I25.2 Old myocardial infarction; J44.9 Chronic obstructive pulmonary disease, unspecified; E11.40 Type 2 diabetes mellitus with diabetic neuropathy, unspecified; Z79.4 Long term (current) use of insulin; Z87.891 Personal history of nicotine dependence
CPT/HCPCS: 36415; 80048; 81001; 82805; 82962; 84443; 85025; 96361; 96374; 99284; J7030; J1815

== ENCOUNTER 2018-07-21 22:19 | Emergency (ER) | payer OTHER ==
[2018-07-21 23:17] LABS: BUN/Creatinine Ratio 20; Blood Urea Nitrogen 12 mg/dL (7-17); Calcium 9.4 mg/dL (8.4-10.2); Hemolysis Index 71
--- NOTE | 2018-07-21 23:28 | XRay Report ---
FINAL REPORT EXAM: XR CHEST ROUTINE 2V HISTORY: Shortness of breath TECHNIQUE: PA and lateral views of the chest were obtained. PRIORS: None. FINDINGS: There are no focal consolidations to suggest pneumonia. No large pleural effusion. No pneumothorax. M oderate enlargement of the cardiac silhouette. Atherosclerotic vascular calcifications. No acute osse ous abnormality identified. IMPRESSION: Moderate enlargement of the cardiac silhouette. No focal consolidation or pleural effusion.
[2018-07-21 23:34] LABS: Hematocrit 43.7 % (30.3-42.9); Hemoglobin 14.3 gm/dl (10.1-14.3); Mean Corpuscular HGB Conc 33 % (30-34); Mean Corpuscular Volume 92 fl (79-97); Platelet Count 244 K/mm3 (140-440); Red Blood Count 4.73 M/mm3 (3.65-5.03); Red Cell Distribution Width 13.6 % (13.2-15.2)
--- NOTE | 2018-07-22 03:05 | Emergency Department Report ---
ED General Adult HPI - General Chief complaint: Dyspnea/Respdistress Stated complaint: SOB COUGHING Time Seen by Provider: 07/22/18 03:03 Source: patient Mode of arrival: Ambulatory Limitations: No Limitations - History of Present Illness Initial comments: 58 y.o. female with history of COPD presents with complaint of coughing and shortness of breath. Patient states that she was recently treated for a bronchitis and is on her last day of doxycycline therapy. Patient states she is exposed to some chemicals at work and is worsened her shortness of breath. Patient states she is a nebulizer 2 times a day for the past 3 days of minimal relief. Patient states she has had a nonproductive cough as well. She does admit to smoking history as well. She denies chest pain. - Related Data Previous Rx's Medication Instructions Recorded Last Taken Type Ciprofloxacin HCl [Ciprofloxacin 500 mg PO BID #10 tablet 10/28/16 Unknown Rx TAB] Ibuprofen [Motrin 600 MG tab] 600 mg PO Q8H PRN #20 tablet 02/13/17 Unknown Rx Insulin NPH Hum/Reg Insulin Hm 100 unit SQ PRN PRN #1 vial 02/13/17 Unknown Rx [HumuLIN 70-30 Vial] Levothyroxine [Synthroid] 125 mcg PO QAM #30 tablet 02/13/17 Unknown Rx Lisinopril [Zestril TAB] 20 mg PO QDAY #30 tablet 02/13/17 Unknown Rx Nitrofurantoin [place]land/M-Cryst 100 mg PO Q12HR #14 capsule 02/13/17 Unknown Rx [Macrobid CAP] Albuterol Sulfate [Albuterol 0.63% 0.63 mg IH TID #90 vial.neb 07/22/18 Unknown Rx NEBS] Allergies Allergy/AdvReac Type Severity Reaction Status Date / Time No Known Allergies Allergy Verified 02/13/17 11:13 ED Review of Systems ROS: Stated complaint: SOB COUGHING Other details as noted in HPI Constitutional: denies: chills, fever Eyes: denies: eye pain, eye discharge, vision change ENT: denies: ear pain, throat pain Respiratory: cough, SOB at rest Cardiovascular: denies: chest pain, palpitations Endocrine: no symptoms reported Gastrointestinal: nausea, vomiting. denies: abdominal pain, diarrhea Genitourinary: denies: urgency, dysuria, discharge Musculoskeletal: denies: back pain, joint swelling, arthralgia Skin: denies: rash, lesions Neurological: denies: headache, weakness, paresthesias Psychiatric: denies: anxiety, depression Hematological/Lymphatic: denies: easy bleeding, easy bruising ED Past Medical Hx - Past Medical History Previous Medical History?: Yes Hx Hypertension: Yes Hx Heart Attack/AMI: Yes Hx Congestive Heart Failure: No Hx Diabetes: Yes Hx Psychiatric Treatment: Yes (depression) Hx Asthma: No Hx COPD: Yes Additional medical history: Hypothyroid. Hepatits C. Neuropathy - Surgical History Past Surgical History?: Yes Hx Coronary Stent: Yes Hx Appendectomy: Yes Additional Surgical History: Cardiac cath - Social History Smoking Status: Current Every Day Smoker Substance Use Type: None - Medications Home Medications: Home Medications Medication Instructions Recorded Confirmed Last Taken Type Ciprofloxacin HCl [Ciprofloxacin 500 mg PO BID #10 tablet 10/28/16 Unknown Rx TAB] Ibuprofen [Motrin 600 MG tab] 600 mg PO Q8H PRN #20 tablet 02/13/17 Unknown Rx Insulin NPH Hum/Reg Insulin Hm 100 unit SQ PRN PRN #1 vial 02/13/17 Unknown Rx [HumuLIN 70-30 Vial] Levothyroxine [Synthroid] 125 mcg PO QAM #30 tablet 02/13/17 Unknown Rx Lisinopril [Zestril TAB] 20 mg PO QDAY #30 tablet 02/13/17 Unknown Rx Nitrofurantoin [place]land/M-Cryst 100 mg PO Q12HR #14 capsule 02/13/17 Unknown Rx [Macrobid CAP] Albuterol Sulfate [Albuterol 0.63% 0.63 mg IH TID #90 vial.neb 07/22/18 Unknown Rx NEBS] ED Physical Exam - General Limitations: No Limitations General appearance: alert, other (awake; comfortable) - Head Head exam: Present: atraumatic, normocephalic - Eye Eye exam: Present: normal appearance - ENT ENT exam: Present: mucous membranes moist - Neck Neck exam: Present: normal inspection - Respiratory Respiratory exam: Present: wheezes. Absent: respiratory distress - Cardiovascular Cardiovascular Exam: Present: regular rate, normal rhythm. Absent: systolic murmur, diastolic murmur, rubs, gallop - GI/Abdominal GI/Abdominal exam: Present: soft, normal bowel sounds - Extremities Exam Extremities exam: Present: normal inspection - Back Exam Back exam: Present: normal inspection - Neurological Exam Neurological exam: Present: alert, oriented X3 - Psychiatric Psychiatric exam: Present: normal affect, normal mood - Skin Skin exam: Present: warm, dry, intact, normal color. Absent: rash ED Course Vital Signs 07/21/18 07/22/18 07/22/18 22:30 03:34 03:45 Temperature 97.1 F L Pulse Rate 76 73 Pulse Rate [ Anterior Bilateral Throughout] Respiratory 20 19 Rate Respiratory Rate [Anterior Bilateral Throughout] Blood Pressure 166/65 147/50 146/62 O2 Sat by Pulse 94 92 92 Oximetry 07/22/18 07/22/18 07/22/18 04:00 04:15 04:30 Temperature Pulse Rate 76 72 82 Pulse Rate [ 74 Anterior Bilateral Throughout] Respiratory 16 18 21 Rate Respiratory 18 Rate [Anterior Bilateral Throughout] Blood Pressure 139/50 148/60 134/52 O2 Sat by Pulse 95 93 90 Oximetry 07/22/18 07/22/18 07/22/18 04:45 05:00 05:15 Temperature Pulse Rate 89 95 H 103 H Pulse Rate [ Anterior Bilateral Throughout] Respiratory 15 10 L 17 Rate Respiratory Rate [Anterior Bilateral Throughout] Blood Pressure 142/54 142/54 132/50 O2 Sat by Pulse 92 95 93 Oximetry ED Medical Decision Making - Lab Data Result diagrams: 07/21/18 22:48 07/21/18 22:48 - EKG Data EKG shows normal: sinus rhythm - EKG Data Interpretation: nonspecific ST-T wave abida - Medical Decision Making Patient received IV fluids and insulin therapy which helped to downgrade her blood glucose. Patient improved from a respiratory standpoint after receiving nebulized treatment in emergency department. Steroid therapy was withheld. Patient ambulated around the emergency department had O2 sat of 96% and states she feels improved. Patient be discharged to follow-up as an outpatient. - Differential Diagnosis pneumonia; COPD exacerbation; electrolyte abnormality; Critical care attestation.: If time is entered above; I have spent that time in minutes in the direct care of this critically ill patient, excluding procedure time. ED Disposition Clinical Impression: COPD exacerbation Disposition: DC-01 TO HOME OR SELFCARE Is pt being admited?: No Does the pt Need Aspirin: No Condition: Stable Instructions: Chronic Obstructive Pulmonary Disease (ED) Prescriptions: Albuterol Sulfate [Albuterol 0.63% NEBS] 0.63 mg IH TID #90 vial.neb Referrals: OBIEKWE,ONWURA, MD [Primary Care Provider] - 3-5 Days Forms: Work/School Release Form(ED) Time of Disposition: 06:35 Print Language: DANISH
[2018-07-22] MEDS ORDERED: PROVENTIL IH ONE (03:52)
[2018-07-22] MEDS ORDERED: ATROVENT IH ONE (03:53)
[2018-07-22] MEDS ORDERED: NACL 0.9% 1000 ML 1,000 ML IV ONE (03:56)
[2018-07-22] MEDS ORDERED: HumuLIN R IV ONE (03:56)
[2018-07-22 07:15] VITALS: BP 146/79
== END 2018-07-22 07:15 | disposition home or self-care (01) ==
LOC: ED 22:19
DX: J44.1 Chronic obstructive pulmonary disease with (acute) exacerbation (principal); R11.2 Nausea with vomiting, unspecified; I10 Essential (primary) hypertension; I25.2 Old myocardial infarction; E11.9 Type 2 diabetes mellitus without complications; F17.200 Nicotine dependence, unspecified, uncomplicated; F32.9 Major depressive disorder, single episode, unspecified; Z95.5 Presence of coronary angioplasty implant and graft; Z90.89 Acquired absence of other organs; Z86.19 Personal history of other infectious and parasitic diseases; Z79.4 Long term (current) use of insulin
CPT/HCPCS: 36415; 71046; 80048; 82550; 82803; 82962; 83880; 84484; 85025; 93005; 93010; 94640; 96361; 96374; 99284; J7030; J1815